=== PATIENT | female | born 1965 | race Caucasian/White ===

== ENCOUNTER → 2023-09-26 08:20 | Outpatient (REF) | payer OTHER, SELFPAY | LOC: WDC 08:20 | PROVIDERS: ATTENDING PHYSICIAN Obstetrics & Gynecology; FAMILY PHYSICIAN Nurse Practitioner Family | DX: Z12.31 Encounter for screening mammogram for malignant neoplasm of breast (principal) | CPT/HCPCS: 77063; 77067 ==

== ENCOUNTER → 2025-06-12 06:36 | Outpatient (REF) | payer OTHER, SELFPAY | LOC: HWRAD 06:36 | PROVIDERS: ATTENDING PHYSICIAN Obstetrics & Gynecology; FAMILY PHYSICIAN Nurse Practitioner Family | DX: Z78.0 Asymptomatic menopausal state (principal) | CPT/HCPCS: 77080 ==